=== PATIENT | male | born 1965 | race Caucasian/White ===

== ENCOUNTER 2019-05-24 20:40 | Emergency (ER) | payer BC ==
[2019-05-24 21:08] VITALS: BP 106/76
--- NOTE | 2019-05-25 09:22 | UC ---
Lower Extremity/Ankle HPI - HPI Summary HPI Summary: Patient presents to urgent care for evaluation of his left foot patient's a 53- year-old gentleman visiting from [place]. Patient states 2 nights ago he was walking when he stubbed his left foot on [place] stump. Patient states he had immediate pain at the base of his great toe. Patient states since this time he's had progressive bruising and swelling. Patient denies fevers or chills. Patient isn't taken any analgesia. Patient is walking with a limp. Patient states he developed little left ankle pain related to work. No open wounds. Patient's medications reviewed this visit. Patient denies knee or hip pain. 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 Onset/Duration: Sudden Onset Severity Initially: Moderate Severity Currently: Moderate Pain Intensity: 6 Pain Scale Used: 0-10 Numeric Aggravating Factor(s): Standing, Ambulation Alleviating Factor(s): Elevation - Allergies/Home Medications Allergies/Adverse Reactions: Allergies Allergy/AdvReac Type Severity Reaction Status Date / Time No Known Allergies Allergy Verified 05/24/19 21:08 Home Medications: Home Medications Ibuprofen TAB* [Advil TAB*] 400 mg PO PRN 05/24/19 [History] PMH/Surg Hx/FS Hx/Imm Hx Previously Healthy: Yes - Surgical History Surgical History: None - Family History Known Family History: Positive: Non-Contributory - Social History Occupation: Employed Full-time Lives: With Family Alcohol Use: Daily Alcohol Amount: 2 BEERS/NIGHT Substance Use Type: None Smoking Status (MU): Never Smoked Tobacco Review of Systems All Other Systems Reviewed And Are Negative: Yes Skin: Positive: Bruising Musculoskeletal: Positive: Other: - Left great toe pain. Foot swelling. Neurological: Negative: Weakness Is Patient Immunocompromised?: No Physical Exam - Summary Physical Exam Summary: Vital Signs Reviewed: Yes A+Ox3, no distress Eyes: Conjunctiva Clear ENT: Hearing grossly normal neck: supple Respiratory: Positive: No respiratory distress, No accessory muscle use Cardiovascular: skin color reflect adequate perfusion 2+ DP, PT CBT < 2 sec all digit Musculoskeletal Exam: VEGA x 4 without difficulty + flex/ext ankle, no pain along MT +TT base great toe on left with extension to distal phalanx mild tenderness 2nd toe + flex/ext ankle, knee Neurological: Positive: Alert, ambulatory without difficulty + gross sensation throughout foot Psychological: Positive: Normal Response To Family Skin: Positive: no rash, + ecchymosis left great toe at base bnail ecchymosis to dorsum l left foot to midfoot and edema of dorsum foot and ankle no creptis Triage Information Reviewed: Yes Vital Signs: Initial Vital Signs Temp 98.1 F 05/24/19 21:05 Pulse 60 05/24/19 21:05 Resp 16 05/24/19 21:05 BP 106/76 05/24/19 21:05 Pulse Ox 99 05/24/19 21:05 Diagnostics - Radiology No standard instances Radiology Interpretation Completed By: Radiologist - Patient Name: HAVEN JOVEL Medical Record#: [id number] Ordering Physician: Nurys Lake MD Acct.#: [id number] : 1965 Age: 53 Sex: M Location: [facility] Exam Date: 05/24/192115 ADM Status: [facility] ER Order Information: TOE LEFT GREAT Accession Number: [id number] CPT: 16331 Indication: Left great toe injury 3 views of the left great toe demonstrates oblique fracture of the plantar medial aspect of the distal phalanx with extension into the intra-articular portion. IMPRESSION: Fracture through the base of the distal phalanx of the left great toe without significant displacement. R0 Preliminary Imaging Read R0 <Electronically signed by Rasheeda Isbell MD in OV> 05/25/19831 Dictated By: Rasheeda Isbell MD Dictated Date/Time : 05/25/19831 Transcribed Date/Time: 05/25/19829 Copy to: CC:Nurys Lake MD; No Primary Care Phys,NOPCP Imaging - [facility] Imaging - [facility] Care [facility] [address] [address] ph ) ph ([phone]) ([phone]) This report is only to be considered final once signed by the Provider(s) as displayed in the "<Electronically Signed by >" field (s). Absence of a signature indicates the report is in a draft status and still needs to be finalized. In the event this document was created by someone other than the signing Provider, the individual initiating the document will be listed in the "Entered by:" or "Dictated by:" zamorano. 1 of 1 Lower Extremity Course/Dx - Course Course Of Treatment: Patient presents to urgent care for evaluation of his left foot. Patient stubbed his left great toe 2 days ago while walking. Patient with progressive edema and ecchymosis since. Patient's here from [place] has been walking with his foot dependent and has had progressive edema and ecchymosis. Patient has not taken anything for pain. No open wounds. No other injury. Preliminary review patient does have a nondisplaced fracture of the proximal phalanx. Recommend crutches and post-op shoe. Concerned because it is intra- articular. Patient will follow-up when he returns back to [place]. Patient was also given a cam boot as he will be in [facility] next week. Advised patient that if he can walk without pain or limp okay to use cam boot.. Otherwise he should stay off of it elevated ice. Motrin Tylenol. Patient states understanding and agreement with plan. Pt aware final imaging report tomorrow if differs fx closed non displaced - Differential Dx/Diagnosis Provider Diagnosis: Fracture of great toe, left, closed Discharge - Sign-Out/Discharge Documenting (check all that apply): Patient Departure All imaging exams completed and their final reports reviewed: Yes - Discharge Plan Condition: Stable Disposition: HOME Patient Education Materials: Toe Fracture (ED) Referrals: No Primary Care Phys,NOPCP [Primary Care Provider] - Additional Instructions: - -wear support shoe for comfort and support -apply ice (20 min at a time) every 2-3 hours for the next 2 days -use crutches until you can walk normally without a limp If it is okay to wear the hard walking boot after 48 hours if you can walk without a limo -Elevate your leg - this will help with swelling and pain - Alternate ibuprofen (advil, Motrin) 600mg and tylenol every 3 hours for pain. Take with food. Do NOT take for more than 4-5 days -Contact your doctor or othopedic specialist to arrange a follow-up appointment when you return home. You should be rechecked if you have increased pain, coolness to your foot or toes, or any other concerns - Billing Disposition and Condition Condition: STABLE Disposition: Home
== END 2019-05-24 22:44 | disposition home or self-care (01) ==
LOC: UCEAST 20:40
DX: S92.422A Displaced fracture of distal phalanx of left great toe, initial encounter for closed fracture (principal); W22.8XXA Striking against or struck by other objects, initial encounter; Y93.01 Activity, walking, marching and hiking; Y92.9 Unspecified place or not applicable
CPT/HCPCS: 99203; G0463